=== PATIENT | female | born 1940 | race Caucasian/White ===

== ENCOUNTER → 2016-05-10 | Day surgery (SDC) | payer OTHER ==
[~2016-05-10] VITALS: Ht 165.1 cm; Wt 77.3 kg
[~2016-05-10] MED LIST: ASPI1TAB69 PO; CART240C PO; CYCLOPENTOLATE HCL 1% OPHT SOLN 2 ML BTL ONE; DEXAMETHASONE SOD PHOS 4 MG/ML VIAL ONE; DIGO0.25 PO; EPINEPHrine-Lidocaine/BSS (PF/SF) 4-120 mg/16 mL OPTH SYR LEFT EYE ONE; FAMOTIDINE 20 MG/2 ML VIAL ONE; LIDOCAINE HCL 1% 20 ML VIAL ONE; LISI10TA3 PO; MANNITOL 12.5 GM/50 ML VIAL IV ONE; MECL1TAB7 PO; METF500T PO; MIDAZOLAM HCL 2 MG/2 ML VIAL ONE; ONDANSETRON HCL 4 MG/2 ML VIAL IV PUSH ONE; PHENYLEPHRINE HCL 10 MG/ML VIAL IV ONE; PHENYLEPHRINE HCL 10% OPTH SOLN 5 ML BTL ONE; POTA-243 PO; PREV15CA15 PO; PROPOFOL 200 MG/20 ML AMP IV ONE; SODIUM CHLORID 0.9% 500 ML INJ 500 ML IV ONE; SODIUM CHLORID 0.9% 500 ML INJ 500 ML ONE; TETRACAINE 0.5% OPTH SOLN 2 ML BTL ONE; TOBRAMYCIN/DEXAMETHASONE OPTH OINT 3.5 GM TUBE ONE; TROPICAMIDE 1% OPHT SOLN 15 ML BTL ONE; VISCOAT OPHT IRRIG SOLN 0.75 ML SYRINGE LEFT EYE ONE; VITA100018 PO; WARF-18 PO
[2016-05-10 07:11] VITALS: BP 176/86; PULSE 92; RESP 20; TEMP 98.4; O2SAT 97
[2016-05-10 09:33] VITALS: PULSE 76
--- NOTE | 2016-05-10 10:01 | PD.OP ---
Operative Report Date of Surgery: May 10, 2016 Preoperative Diagnosis: (1) Total, mature age-related cataract Postoperative Diagnosis: (1) Pseudophakia of left eye Procedure: phacoemulsification and intraocular lens implant left eye Anesthesia: General Surgeon: Krupa Liu Adjunct Instructor Chemistry(s): None Operation and Findings: Patient was consented for surgery and taken back to the operating room. She was put under general anesthesia and prepped and draped in the usual sterile fashion for ophthalmic surgery. A wire lid speculum was placed in the left eye. A paracentesis incision was created at the 5 o'clock position on the limbus. Vision blue dye and viscoelastic was injected into the anterior chamber. The main incision was created at the 2 o'clock position on the limbus with a 2.4 mm keratome. A continuous curvilinear capsulorrhexis was made on the anterior lens capsule. Hydrodissection was used to separate the lens nucleus from the capsule. Phacoemulsification was used to remove the lens nucleus material. Irrigation and aspiration was used to remove the remaining cortical material. The lens implant ([id number] SN [id number]) was placed in the capsular bag. Viscoelastic was removed with irrigation and aspiration. The incisions were irrigated and found to be watertight. A 10-0 nylon suture was placed at the paracentesis incision. Tobradex ointment, a patch, and shield were placed on the left eye. The patient was sent to PACU in stable condition. Krupa Liu MD May 10, 2016 10:01
[2016-05-10 10:30] VITALS: PULSE 75; TEMP 97.8
[2016-05-10 10:55] VITALS: BP 121/65; PULSE 76; RESP 14; O2SAT 97
== END | disposition home or self-care (01) ==
LOC: CSDC 05:48
PROVIDERS: ATTEND Ophthalmology
DX: H25.812 Combined forms of age-related cataract, left eye (principal); I48.91 Unspecified atrial fibrillation
CPT/HCPCS: 00142; 66984; J1100; J2150; J2250; J2370; J2405; J3010; J7040; V2632